=== PATIENT | female | born 1955 | race Caucasian/White ===

== ENCOUNTER 2022-04-04 15:16 | Outpatient (CLI) | payer MEDICARE, BC, SELFPAY ==
--- NOTE | 2022-04-04 15:00 | DI.RAD_ITS ---
Exam(s) XR SHOULDER RT COMPLETE 2+V EXAM: XR SHOULDER RT COMPLETE 2+V CLINICAL HISTORY: R shouder pain. TECHNIQUE: 2D digital imaging was performed. Two views. COMPARISON: No exams were available for comparison FINDINGS: BONES: No acute fracture is present. No bony destructive lesion is seen. JOINTS: No dislocation present. Mild spurring at the AC joint and inferior glenoid. SOFT TISSUE: Normal. IMPRESSION: Mild degenerative changes. DATA REPOSITORY: RADIATION DOSE DELIVERED:
== END 2022-04-04 15:17 | disposition home or self-care (01) ==
LOC: DIORS 15:16
PROVIDERS: PCP Physician Assistant; Referring Provider Physician Assistant; Visit Provider Physician Assistant
DX: M25.511 Pain in right shoulder (principal); M75.51 Bursitis of right shoulder; M75.101 Unspecified rotator cuff tear or rupture of right shoulder, not specified as traumatic; M79.18 Myalgia, other site; M19.011 Primary osteoarthritis, right shoulder
CPT/HCPCS: 20610; 99203; 73030; J1030

== ENCOUNTER 2022-05-04 09:56 | Outpatient (REF) | payer MEDICARE, BC, SELFPAY ==
[2022-05-04 18:26] LABS: Calculated LDL 53 mg/dL (<100); Cholesterol 141 mg/dL (<200); HDL Cholesterol 36 mg/dL (40-60); Triglyceride 261 mg/dL (<150)
== END 2022-05-04 09:57 | disposition home or self-care (01) ==
LOC: NCHCN 09:56
PROVIDERS: PCP Physician Assistant; Visit Provider Physician Assistant
DX: E78.2 Mixed hyperlipidemia (principal)
CPT/HCPCS: 80061

== ENCOUNTER 2022-05-05 16:45 | Emergency (ER) | payer MEDICARE, BC, SELFPAY ==
[2022-05-05 17:09] VITALS: BP 118/69; PULSE 82; RESP 18; O2SAT 97
--- NOTE | 2022-05-05 17:35 | W.ED.GENAD ---
Discharge Plan Disposition Patient Disposition: HOME Condition: Good Discharge Details Clinical Impression: URI (upper respiratory infection) Primary Care Provider: Minesh Jara ED Provider: Yael Smith Home Meds and New Rx's Prescriptions: New benzonatate 100 mg capsule 100 mg PO BID-TID PRN (Reason: cough) Qty: 10 0RF Continued levothyroxine 50 mcg capsule 50 mcg PO DAILY bupropion HCl 150 mg tablet extended release 24 hr 150 mg PO QAM trazodone 50 mg tablet 50 mg PO DAILY gabapentin 300 mg capsule 300 mg PO DAILY omeprazole 40 mg capsule,delayed release(DR/EC) 40 mg PO DAILY venlafaxine 150 mg tablet extended release 24hr 150 mg PO DAILY amlodipine 5 mg tablet 5 mg PO DAILY metoprolol succinate 50 mg tablet extended release 24 hr 50 mg PO DAILY atorvastatin 20 mg tablet 20 mg PO DAILY aspirin [Adult Aspirin Regimen] 81 mg tablet,delayed release (DR/EC) 81 mg PO DAILY cyclobenzaprine 10 mg tablet 10 mg PO TID Discharge Instructions Instructions: Upper Respiratory Infection (ED) Additional Instructions: As discussed, your exam is very reassuring here today. Your lungs are clear and I do not see any evidence to suggest a bacterial infection. Please encourage hydration. Tylenol and ibuprofen as needed for discomfort. May try vlwl-psy-duxaulc options such as Mucinex to help with secretions. May also try honey to help with sore throat and cough. May use the Tessalon Perles as prescribed to help with cough. Typically, these infections last 2 to 3 weeks. However, if things start to worsen instead of improving you develop fevers, chest pain, shortness of breath please seek care immediately once again. Otherwise, please follow-up with primary care in 2 weeks for reevaluation Referrals: Minesh Jara [Primary Care Provider] - Discharge Data Discharge Date/Time-TO BE ENTERED AT DEPARTURE: 05/05/22 19:19 Medical Decision Making Patient is a pleasant 66-year-old female presented with chief complaint of cough. She reports that she began with a URI about 5 days ago including congestion, cough, sore throat. However, she states that the nasal congestion has improved. Cough has persisted. Primarily dry cough. Denies any shortness of breath but states that she can occasionally have coughing fits. Denies any nausea, vomiting or diarrhea. On exam, patient appears nontoxic. VS WNL. She is afebrile. Normal HEENT exam, no lymphadenopathy, lungs clear. Advised likely viral etiology. I do not see evidence of bacterial pneumonia. She has been covid testing at home and it has been negative. We discussed supportive measures to help with symptomatic management. We discussed common course of viral URI and red flags that should prompt her to seek care more urgently once again. Advised f/u with PCP in 2 weeks. All of her questions and concerns were addressed, she is in agreement with this plan. HPI General Date/Time Provider Initiated Documentation: 05/05/22 17:35. Limitations to Documentation: no limitations. Information obtained by: patient and RN notes reviewed. History of Present Illness 66 year old F presents to the emergency department with the chief complaint of cough, congestion, sore throat, described as mild, with intensity rated at 1 (denies pain currently). Quality is described as burning, and is localized to the mouth (sore throat). Patient reports no radiation. Patient started experiencing this day(s) (3) and it has been constant. No relieving factors improve symptom(s), No exacerbating factors reported . Patient notes cough and malaise; denies chest pain, diaphoresis, fever/chills, nausea/vomiting, rash and shortness of breath. Patient did receive the following treatments prior to arrival, none Related Data Home Medications Medication Instructions Recorded Confirmed amlodipine 5 mg tablet 5 mg PO DAILY 03/22/22 05/05/22 aspirin 81 mg tablet,delayed 81 mg PO DAILY 03/22/22 05/05/22 release (Adult Aspirin Regimen) atorvastatin 20 mg tablet 20 mg PO DAILY 03/22/22 05/05/22 bupropion HCl 150 mg 24 hr tablet, 150 mg PO QAM 03/22/22 05/05/22 extended release gabapentin 300 mg capsule 300 mg PO DAILY 03/22/22 05/05/22 levothyroxine 50 mcg capsule 50 mcg PO DAILY 03/22/22 05/05/22 metoprolol succinate 50 mg 50 mg PO DAILY 03/22/22 05/05/22 tablet,extended release 24 hr omeprazole 40 mg capsule,delayed 40 mg PO DAILY 03/22/22 05/05/22 release trazodone 50 mg tablet 50 mg PO DAILY 03/22/22 05/05/22 venlafaxine 150 mg tablet,extended 150 mg PO DAILY 03/22/22 05/05/22 release 24 hr cyclobenzaprine 10 mg tablet 10 mg PO TID 04/04/22 05/05/22 benzonatate 100 mg capsule 100 mg PO BID-TID PRN cough #10 05/05/22 caps Previous Rx's Medication Instructions Recorded benzonatate 100 mg capsule 100 mg PO BID-TID PRN cough #10 05/05/22 caps Allergies Allergy/AdvReac Type Severity Reaction Status Date / Time Sulfa (Sulfonamide Allergy Unknown Verified 04/04/22 14:59 Antibiotics) General Stated Complaint: RespSymp MECHE: 4 Review of Systems Constitutional Constitutional: Reports as per HPI and Denies headache(s) Eyes Eyes: Reports as per HPI, Denies eye discharge and Denies irritation ENT Ears, Nose, Mouth, and Throat: Reports as per HPI and Denies headache(s) Cardiovascular Cardiovascular: Reports as per HPI, Denies chest pain and Denies dyspnea Respiratory Respiratory: Reports as per HPI and Denies dyspnea Gastrointestinal Gastrointestinal: Reports as per HPI, Denies abdominal pain, Denies change in bowel habits, Denies nausea and Denies vomiting Integumentary/Breasts Skin/Breast: Reports as per HPI and Denies rash Neurologic Neurologic: Reports as per HPI and Denies headache(s) PFSH All Active Problems (Updated 05/05/22 @ 18:48 by ELKIN Carter) URI (upper respiratory infection) (Acute) Amplified musculoskeletal pain syndrome (Acute) Rotator cuff tear, right (Acute) Bursitis of right shoulder (Acute) Arthritis of right shoulder region (Acute) Social History Smoking risk assessment performed?: No Current gender identity: female Exam Const General: cooperative, healthy appearing, comfortable, no acute distress, well developed and well groomed Nutritional Appearance: well nourished and overweight Orientation: alert and awake [facility] Head: normal to inspection, normocephalic and atraumatic Ears: hearing grossly normal bilaterally, external ears normal and TM's normal bilaterally General nose exam: external nose normal and nares normal Face and sinus: normal facial exam, sinuses nontender and face symmetric Mouth: oral mucosae normal, lip normal, tongue normal, oropharynx normal and moist mucous membranes Teeth and gingiva: dentition normal Throat: posterior oropharynx normal, tonsils normal and uvula midline Eyes General: appearance normal, both eyes and all related structures Neck Neck: normal visual inspection, full ROM, no lymphadenopathy and no meningeal signs Resp Effort & Inspection: normal respiratory effort, able to speak in complete sentences and no respiratory distress Auscultation: clear to auscultation bilaterally, no rales, no rhonchi and no wheezes Cardio Rate: regular rate Rhythm: regular rhythm Heart Sounds: S1 normal and S2 normal Skin General skin exam: no rashes or lesions noted Neuro General: patient alert and patient awake Cognition: normal cognition Speech: speech normal Gait: normal gait Psych Appearance: grossly normal and well kempt Mental Status: mental status grossly normal Speech and Movement: speech and movement normal Course Vital Signs Vital signs: Vital Signs Pulse 82 05/05/22 17:09 Respiratory Rate 18 05/05/22 17:09 Blood Pressure 118/69 05/05/22 17:09 Pulse Oximetry 97 05/05/22 17:09 Temperature Source Temporal Artery Scan 05/05/22 17:09 Pulse 82 05/05/22 17:09 Respiratory Rate 18 05/05/22 17:09 Blood Pressure 118/69 05/05/22 17:09 Blood Pressure Position Sitting 05/05/22 17:09 Pulse Oximetry 97 05/05/22 17:09 Oxygen Delivery Method Room Air 05/05/22 17:09 Oxygen Flow Rate 0 05/05/22 17:09 Pain Level 0 05/05/22 17:09
[2022-05-05] MEDS: Benzonatate 100 MG CAP PO (19:14)
[2022-05-05 19:16] VITALS: BP 120/72; PULSE 80; RESP 14; O2SAT 97
== END 2022-05-05 19:19 | disposition home or self-care (01) ==
PROVIDERS: Emergency Provider Physician Assistant; PCP Physician Assistant
DX: J06.9 Acute upper respiratory infection, unspecified (principal)
CPT/HCPCS: 99283; 99284